=== PATIENT | female | born 1960 | race American Indian/Alaskan Native ===

== ENCOUNTER 2018-12-28 00:48 | Emergency (ER) | payer MEDICARE ==
[2018-12-28 00:52] VITALS: BP 168/86
[2018-12-28] MEDS ORDERED: DECADRON IM ONE (01:41)
[2018-12-28] MEDS ORDERED: BENADRYL PO ONE (01:41)
[2018-12-28] MEDS ORDERED: PEPCID PO ONE (01:41)
--- NOTE | 2018-12-28 02:37 | Emergency Department Report ---
HPI - General Chief Complaint: Allergic Reaction Time Seen by Provider: 12/28/18 01:40 - HPI HPI: pt is a 58 y/o aaf who presents for allergic reaction to Tylenol #3 taken and home approxe 4 hrs , pt states she began to breakout in rash hives aft ingesting T3, there was no sob no dizziness no lightheadedness no cp rash red raise macrpapular, to trunk abd back and neck, ED Past Medical Hx - Past Medical History Previous Medical History?: Yes Hx Arthritis: Yes (osteo) Hx Psychiatric Treatment: Yes (anxiety) - Surgical History Past Surgical History?: Yes Additional Surgical History: right knee replacement - Social History Smoking Status: Never Smoker Substance Use Type: None - Medications Home Medications: Home Medications Medication Instructions Recorded Confirmed Last Taken Type Dexamethasone [Decadron] 4 mg PO BID #4 tablet 12/28/18 Unknown Rx EPINEPHrine [Epipen 2-Kade] 0.3 mg IJ PRN PRN #1 auto.injct 12/28/18 Unknown Rx Famotidine [Pepcid] 20 mg PO BID #14 tablet 12/28/18 Unknown Rx diphenhydrAMINE [Benadryl CAP] 25 mg PO Q6HR PRN #28 capsule 12/28/18 Unknown Rx ED Review of Systems ROS: Stated complaint: HIVES ON BACK AND PAIN Other details as noted in HPI Constitutional: denies: chills, fever Eyes: denies: eye pain, eye discharge, vision change ENT: congestion. denies: ear pain, throat pain, dental pain, hearing loss Respiratory: cough, SOB with exertion. denies: shortness of breath, wheezing Cardiovascular: denies: chest pain, palpitations Endocrine: no symptoms reported Gastrointestinal: denies: abdominal pain, nausea, vomiting, diarrhea Genitourinary: denies: urgency, dysuria, discharge Musculoskeletal: denies: back pain, joint swelling, arthralgia Skin: rash. denies: lesions Neurological: denies: headache, weakness, paresthesias Psychiatric: as per HPI Hematological/Lymphatic: denies: easy bleeding, easy bruising Physical Exam - Physical Exam Vital Signs: Vital Signs 12/28/18 00:49 Temperature 98.2 F Pulse Rate 87 Respiratory 18 Rate Blood Pressure 168/86 O2 Sat by Pulse 97 Oximetry General: pt appears well nontoxic, exam: rash raise, rough, urticaria, to trunk and arm no fever no weeping Physical Exam: pt with nad reps even non labored ED Course Vital Signs 12/28/18 00:49 Temperature 98.2 F Pulse Rate 87 Respiratory 18 Rate Blood Pressure 168/86 O2 Sat by Pulse 97 Oximetry - Reevaluation(s) Reevaluation #1: 12/28/18 02:38 benadry, decadron, pepcid pt advise symptoms improved. ED Medical Decision Making - Medical Decision Making this an allergic reaction to medication symptoms improved at this time., plan dc to home with rx for benadryl, pepcid, decadron, epipen pt given epipen teaching at this time per verbalized agreement and understanding of discharge plan. Critical care attestation.: If time is entered above; I have spent that time in minutes in the direct care of this critically ill patient, excluding procedure time. ED Disposition Clinical Impression: Allergic drug reaction Qualifiers: Encounter type: initial encounter Qualified Code(s): T78.40XA - Allergy, unspecified, initial encounter Disposition: DC-01 TO HOME OR SELFCARE Is pt being admited?: No Does the pt Need Aspirin: No Condition: Good Instructions: Allergies (ED), Antibiotic Medication Allergy (ED) Prescriptions: Dexamethasone [Decadron] 4 mg PO BID #4 tablet diphenhydrAMINE [Benadryl CAP] 25 mg PO Q6HR PRN #28 capsule PRN Reason: Allergic Reaction EPINEPHrine [Epipen 2-Kade] 0.3 mg IJ PRN PRN #1 auto.injct PRN Reason: Allergy Symptoms Famotidine [Pepcid] 20 mg PO BID #14 tablet Referrals: JENNIFER DOYLE [Other] - 3-5 Days Forms: Work/School Release Form(ED) Time of Disposition: 02:48
== END 2018-12-28 02:53 | disposition home or self-care (01) ==
LOC: ED 00:48
DX: R21 Rash and other nonspecific skin eruption (principal); T39.1X5A Adverse effect of 4-Aminophenol derivatives, initial encounter; M19.90 Unspecified osteoarthritis, unspecified site; Z96.651 Presence of right artificial knee joint; Z88.0 Allergy status to penicillin; Y92.099 Unspecified place in other non-institutional residence as the place of occurrence of the external cause
CPT/HCPCS: 96372; 99282; J1100

== ENCOUNTER 2019-05-07 15:52 | Emergency (ER) | payer MEDICARE ==
[2019-05-07 15:59] VITALS: BP 152/90
[2019-05-07] MEDS ORDERED: NORCO 5/325 PO ONE (17:28)
--- NOTE | 2019-05-07 17:33 | Vascular Lab Report ---
DUPLEX VENOUS DOPPLER LEFT LOWER EXTREMITY INDICATION: edema TECHNIQUE: Duplex doppler imaging was performed through the veins of the left lower extremity using v enous compression and other maneuvers. COMPARISON: None available. FINDINGS: Common Femoral vein: Negative. Superficial Femoral vein: Negative. Popliteal vein: Negative. Calf veins: Negative. Additional findings: Soft tissue edema is noted distally. Thin elongated area of fluid in the poplite al fossa might be a popliteal cyst. IMPRESSION: No evidence of deep venous thrombosis. Signer Name: Erwin Singh MD Signed: 05/07/2019 5:29 PM Workstation Name: [id number]
--- NOTE | 2019-05-07 18:01 | Emergency Department Report ---
ED Lower Extremity HPI - General Chief Complaint: Extremity Problem,Nontraumatic Stated Complaint: LT LEG PAIN Time Seen by Provider: 05/07/19 17:26 Source: patient Mode of arrival: Ambulatory Limitations: No Limitations - History of Present Illness Initial Comments: Pt is a 59 y/o aaf with hx left knee ORIF, and htn who presents for left Lower leg pain x 2 , right medial tibfib pain with dorsoflexion, no calf tenderness mild LE swelling pt remains ambulatory. MD Complaint: other (LLE Pain ) Onset/Timin -: week(s) Injury: Leg: Left Place: home Severity: moderate Severity scale (0 -10): 4 Improves With: rest Worsens With: weight bearing, movement, palpation Context: other (post op ORIF left knee ) Associated Symptoms: swelling, ambulatory. denies: numbness, tingling - Related Data Previous Rx's Medication Instructions Recorded Last Taken Type EPINEPHrine [Epipen 2-Kade] 0.3 mg IJ PRN PRN #1 auto.injct 12/28/18 Unknown Rx Famotidine [Pepcid] 20 mg PO BID #14 tablet 12/28/18 Unknown Rx dexAMETHasone [Decadron] 4 mg PO BID #4 tablet 12/28/18 Unknown Rx diphenhydrAMINE [Benadryl CAP] 25 mg PO Q6HR PRN #28 capsule 12/28/18 Unknown Rx Capsaicin 0.075% [Zostrix Hp 1 applicatio TP TID PRN #1 tube 05/07/19 Unknown Rx 0.075%] traMADol [Ultram] 50 mg PO Q6HR PRN #12 tablet 05/07/19 Unknown Rx Allergies Allergy/AdvReac Type Severity Reaction Status Date / Time Penicillins Allergy Rash Verified 12/28/18 00:53 ED Review of Systems ROS: Stated complaint: LT LEG PAIN Other details as noted in HPI Constitutional: denies: chills, fever Eyes: denies: eye pain, eye discharge, vision change ENT: denies: ear pain, throat pain Respiratory: denies: cough, shortness of breath, wheezing Cardiovascular: denies: chest pain, palpitations Endocrine: no symptoms reported Gastrointestinal: denies: abdominal pain, nausea, diarrhea Genitourinary: denies: urgency, dysuria, discharge Musculoskeletal: arthralgia, myalgia. denies: back pain Skin: denies: rash, lesions Neurological: denies: headache, weakness, paresthesias Psychiatric: as per HPI Hematological/Lymphatic: denies: easy bleeding, easy bruising ED Past Medical Hx - Past Medical History Previous Medical History?: Yes Hx Arthritis: Yes (osteo) Hx Psychiatric Treatment: Yes (anxiety) - Surgical History Past Surgical History?: Yes Additional Surgical History: right knee replacement - Social History Smoking Status: Never Smoker - Medications Home Medications: Home Medications Medication Instructions Recorded Confirmed Last Taken Type EPINEPHrine [Epipen 2-Kade] 0.3 mg IJ PRN PRN #1 auto.injct 12/28/18 Unknown Rx Famotidine [Pepcid] 20 mg PO BID #14 tablet 12/28/18 Unknown Rx dexAMETHasone [Decadron] 4 mg PO BID #4 tablet 12/28/18 Unknown Rx diphenhydrAMINE [Benadryl CAP] 25 mg PO Q6HR PRN #28 capsule 12/28/18 Unknown Rx Capsaicin 0.075% [Zostrix Hp 1 applicatio TP TID PRN #1 tube 05/07/19 Unknown Rx 0.075%] traMADol [Ultram] 50 mg PO Q6HR PRN #12 tablet 05/07/19 Unknown Rx ED Physical Exam - General Limitations: No Limitations General appearance: alert, in no apparent distress - Head Head exam: Present: atraumatic, normocephalic - Eye Eye exam: Present: normal appearance, PERRL, EOMI Pupils: Present: normal accommodation - ENT ENT exam: Present: mucous membranes moist - Neck Neck exam: Present: normal inspection - Respiratory Respiratory exam: Present: normal lung sounds bilaterally. Absent: respiratory distress - Cardiovascular Cardiovascular Exam: Present: regular rate, normal rhythm. Absent: systolic murmur, diastolic murmur, rubs, gallop - GI/Abdominal GI/Abdominal exam: Present: soft, normal bowel sounds. Absent: distended, tenderness, bruit, hernia - Rectal Rectal exam: Present: deferred - Extremities Exam Extremities exam: Present: normal inspection, full ROM, tenderness (left lateral tib fib ), normal capillary refill. Absent: pedal edema, joint swelling, calf tenderness - Expanded Lower Extremity Exam Left Lower Leg exam: Present: full ROM, tenderness, swelling. Absent: abrasion, laceration, ecchymosis, deformity, crepidus, dislocation, erythema, palpable cord, Natanael's sign Ankle exam: Present: normal inspection, full ROM, swelling. Absent: tenderness, abrasion, laceration, ecchymosis, deformity, crepidus, dislocation, erythema, anterior draw sign Foot/Toe exam: Present: full ROM. Absent: tenderness, swelling, abrasion, laceration, ecchymosis, deformity, crepidus, dislocation, erythema, amputation, puncture wound, foreign body, calcaneal tenderness, tenderness at base of 5th metatarsal, nail avulsion, subungual hematoma Neuro vascular tendon exam: Absent: pulse deficit, motor deficit, sensory deficit, tendon deficit Gait: Positive: observed and normal - Back Exam Back exam: Present: normal inspection, full ROM. Absent: tenderness, CVA tenderness (R), CVA tenderness (L), muscle spasm, paraspinal tenderness, rash noted - Neurological Exam Neurological exam: Present: alert, oriented X3, CN II-XII intact, normal gait, reflexes normal. Absent: motor sensory deficit - Psychiatric Psychiatric exam: Present: normal affect, normal mood - Skin Skin exam: Present: warm, dry, intact, normal color. Absent: rash ED Course Vital Signs 05/07/19 15:57 Temperature 98.3 F Pulse Rate 80 Respiratory 18 Rate Blood Pressure 152/90 O2 Sat by Pulse 98 Oximetry ED Lower Extremity MDM - Radiology Data Radiology results: report reviewed, image reviewed Ordering Physician: ANGELIKA ARGUETA Date of Service: 05/07/19 Procedure(s): VL venous duplex LE LT Accession Number(s): [id number] cc: ANGELIKA ARGUETA DUPLEX VENOUS DOPPLER LEFT LOWER EXTREMITY INDICATION: edema TECHNIQUE: Duplex doppler imaging was performed through the veins of the left lower extremity using venous compression and other maneuvers. COMPARISON: None available. FINDINGS: Common Femoral vein: Negative. Superficial Femoral vein: Negative. Popliteal vein: Negative. Calf veins: Negative. Additional findings: Soft tissue edema is noted distally. Thin elongated area of fluid in the popliteal fossa might be a popliteal cyst. IMPRESSION: No evidence of deep venous thrombosis. Signer Name: Erwin Singh MD Signed: 05/07/2019 5:29 PM Workstation Name: [id number] Transcribed By: Dictated By: Erwin Singh MD Electronically Authenticated By: Erwin Singh MD Signed Date/Time: 05/07/19 6251 - Medical Decision Making US LE neg for DVT plan: ultram, capsacin oint, follow up with pcp in 2-3 days return to ed if symptoms worsen, pt and family members verbalized agreement and understanding of discharge plan. Critical care attestation.: If time is entered above; I have spent that time in minutes in the direct care of this critically ill patient, excluding procedure time. ED Disposition Clinical Impression: Musculoskeletal pain of left lower extremity Disposition: DC- TO HOME OR SELFCARE Is pt being admited?: No Does the pt Need Aspirin: No Condition: Stable Instructions: Musculoskeletal Pain (ED), Arthralgia (ED) Prescriptions: traMADol [Ultram] 50 mg PO Q6HR PRN #12 tablet PRN Reason: Pain Capsaicin 0.075% [Zostrix Hp 0.075%] 1 applicatio TP TID PRN #1 tube PRN Reason: Pain , Severe (7-10) Referrals: ABHISHEK SINGH MD [Staff Physician] - 3-5 Days Forms: Work/School Release Form(ED) Time of Disposition: 18:12
== END 2019-05-07 18:51 | disposition home or self-care (01) ==
LOC: ED 15:52
DX: M79.605 Pain in left leg (principal); M19.90 Unspecified osteoarthritis, unspecified site; F41.9 Anxiety disorder, unspecified; Z98.890 Other specified postprocedural states; Z96.651 Presence of right artificial knee joint; Z79.899 Other long term (current) drug therapy; Z88.0 Allergy status to penicillin
CPT/HCPCS: 99283

== ENCOUNTER 2021-02-11 00:54 | Emergency (ER) | payer MEDICARE ==
--- NOTE | 2021-02-11 04:35 | Emergency Department Report ---
ED Eye Problem HPI - General Chief complaint: Eye Problems Stated complaint: EYE PAIN/DISCHARGE Source: patient Mode of arrival: Ambulatory Limitations: No Limitations - History of Present Illness Initial comments: Patient is a 60-year-old -[place] female with a history of morbid obesity, hypertension, chronic osteoarthritis and anxiety presents to the ED with complaint of acute onset persistent bilateral nontraumatic eye pain with thick purulent discharge and swollen eyelids for the last 1 week. Patient states that she has been using [id number] eyedrops with no relief. Patient states that in the last 2 days she has not been able to open her eyes because of matting significant due to thick purulent discharge. Patient states that no one else at home is had similar symptoms. Patient denies change in vision, headache, fever, chills, cough, nasal and sinus congestion, abdominal pain, sore throat, dizziness, syncope, chest pain or shortness of breath, sore throat, traumatic injury or neck pain. MD chief complaint: eye pain (Bilateral), eye redness (Bilateral), other (Severe bilateral conjunctival purulent discharge) -: Sudden, week(s) (1) Onset Description: sudden Location: both eyes Place: home If Injury: none Eye Symptoms: burning, redness, pain, discharge Severity: severe Severity scale (0 -10): 7 If Pain, Quality: sharp, burning, aching Consistency: constant Context: recent uri Associated Symptoms: none. denies: headache, neck pain, nausea/vomiting, cough, rhinorrhea, fever, shortness of breath Treatments Prior to Arrival: OTC eye drops - Related Data Patient Tetanus UTD: Yes Previous Rx's Medication Instructions Recorded Last Taken Type EPINEPHrine [Epipen 2-Kade] 0.3 mg IJ PRN PRN #1 auto.injct 12/28/18 Unknown Rx Famotidine [Pepcid] 20 mg PO BID #14 tablet 12/28/18 Unknown Rx dexAMETHasone [Decadron] 4 mg PO BID #4 tablet 12/28/18 Unknown Rx diphenhydrAMINE [Benadryl CAP] 25 mg PO Q6HR PRN #28 capsule 12/28/18 Unknown Rx Capsaicin 0.075% [Zostrix Hp 1 applicatio TP TID PRN #1 tube 05/07/19 Unknown Rx 0.075%] traMADoL [Ultram] 50 mg PO Q6HR PRN #12 tablet 05/07/19 Unknown Rx Gentamicin 0.3% Ophth Soln 1 drops OP Q4H #1 bottle 02/11/21 Unknown Rx Ibuprofen [Motrin] 600 mg PO Q8H PRN #30 tablet 02/11/21 Unknown Rx Sulfamethoxazole/Trimethoprim 1 each PO Q12H #20 tablet 02/11/21 Unknown Rx [Bactrim DS TAB] Allergies Allergy/AdvReac Type Severity Reaction Status Date / Time Penicillins Allergy Rash Verified 12/28/18 00:53 ED Review of Systems ROS: Stated complaint: EYE PAIN/DISCHARGE Other details as noted in HPI Constitutional: denies: chills, fever Eyes: eye pain (Bilateral), eye discharge (Bilateral), other (Bilateral swollen eyelids with pain). denies: vision change ENT: denies: ear pain, throat pain Respiratory: denies: cough, shortness of breath, wheezing Cardiovascular: denies: chest pain, palpitations Endocrine: no symptoms reported Gastrointestinal: denies: abdominal pain, nausea, diarrhea Genitourinary: denies: urgency, dysuria, discharge Musculoskeletal: denies: back pain, joint swelling, arthralgia Skin: denies: rash, lesions Neurological: denies: headache, weakness, paresthesias Psychiatric: denies: anxiety, depression Hematological/Lymphatic: denies: easy bleeding, easy bruising ED Past Medical Hx - Past Medical History Hx Hypertension: Yes Hx Arthritis: Yes (osteo) Hx Psychiatric Treatment: Yes (anxiety) - Surgical History Additional Surgical History: right knee replacement - Social History Smoking Status: Never Smoker - Medications Home Medications: Home Medications Medication Instructions Recorded Confirmed Last Taken Type EPINEPHrine [Epipen 2-Kade] 0.3 mg IJ PRN PRN #1 auto.injct 12/28/18 Unknown Rx Famotidine [Pepcid] 20 mg PO BID #14 tablet 12/28/18 Unknown Rx dexAMETHasone [Decadron] 4 mg PO BID #4 tablet 12/28/18 Unknown Rx diphenhydrAMINE [Benadryl CAP] 25 mg PO Q6HR PRN #28 capsule 12/28/18 Unknown Rx Capsaicin 0.075% [Zostrix Hp 1 applicatio TP TID PRN #1 tube 05/07/19 Unknown Rx 0.075%] traMADoL [Ultram] 50 mg PO Q6HR PRN #12 tablet 05/07/19 Unknown Rx Gentamicin 0.3% Ophth Soln 1 drops OP Q4H #1 bottle 02/11/21 Unknown Rx Ibuprofen [Motrin] 600 mg PO Q8H PRN #30 tablet 02/11/21 Unknown Rx Sulfamethoxazole/Trimethoprim 1 each PO Q12H #20 tablet 02/11/21 Unknown Rx [Bactrim DS TAB] ED Physical Exam - General Limitations: No Limitations General appearance: alert, in no apparent distress - Head Head exam: Present: atraumatic, normocephalic, normal inspection - Eye Eye exam: Present: PERRL, EOMI, other (Swollen bilateral eyelids; bilateral conjunctival erythema with pink purulent discharge and matting) Pupils: Present: normal accommodation - ENT ENT exam: Present: normal exam, normal orophraynx, mucous membranes moist, TM's normal bilaterally, normal external ear exam - Neck Neck exam: Present: normal inspection, full ROM - Respiratory Respiratory exam: Present: normal lung sounds bilaterally. Absent: respiratory distress, wheezes, rales, rhonchi, chest wall tenderness, accessory muscle use, decreased breath sounds, prolonged expiratory - Cardiovascular Cardiovascular Exam: Present: regular rate, normal rhythm, normal heart sounds. Absent: systolic murmur, diastolic murmur, rubs, gallop - GI/Abdominal GI/Abdominal exam: Present: soft, normal bowel sounds. Absent: tenderness, guarding, rebound, hyperactive bowel sounds, hypoactive bowel sounds, organomegaly - Extremities Exam Extremities exam: Present: normal inspection, full ROM, normal capillary refill - Back Exam Back exam: Present: normal inspection, full ROM. Absent: tenderness, CVA tenderness (R), CVA tenderness (L), muscle spasm, paraspinal tenderness, vertebral tenderness - Neurological Exam Neurological exam: Present: alert, oriented X3, CN II-XII intact, normal gait, reflexes normal - Psychiatric Psychiatric exam: Present: normal affect, normal mood - Skin Skin exam: Present: warm, dry, intact, normal color. Absent: rash ED Course Vital Signs 02/11/21 01:20 Temperature 98.2 F Pulse Rate 92 H Respiratory 18 Rate Blood Pressure 138/96 O2 Sat by Pulse 99 Oximetry ED Medical Decision Making - Medical Decision Making This is a 60-year-old -[place] female with a history of morbid obesity, hypertension, chronic osteoarthritis and anxiety presents to the ED with complaint of acute onset persistent bilateral nontraumatic eye pain with thick purulent discharge and swollen eyelids for the last 1 week. Patient states that she has been using [id number] eyedrops with no relief. Patient states that in the last 2 days she has not been able to open her eyes because of matting significant due to thick purulent discharge. Patient states that no one else at home is had similar symptoms. In the ED, patient is alert and oriented x3 and is not in any distress. Patient the history and physical exam findings, the patient appears to have severe acute bacterial conjunctivitis and blepharitis. Patient was discharged home on medications including antibiotics eyedrops and pain medications and advised to follow-up with her primary care physician in 3 to 5 days for reevaluation. Patient was advised return to the ED immediately if symptoms get worse. - Differential Diagnosis Bacterial conjunctivitis; blepharitis; Critical care attestation.: If time is entered above; I have spent that time in minutes in the direct care of this critically ill patient, excluding procedure time. ED Disposition Clinical Impression: Acute bacterial conjunctivitis of both eyes Blepharitis of both eyes Qualifiers: Blepharitis type: unspecified type Eyelid: both upper and lower Qualified Code(s): H01.00A - Unspecified blepharitis right eye, upper and lower eyelids; H01.00B - Unspecified blepharitis left eye, upper and lower eyelids Disposition: TO HOME OR SELFCARE Is pt being admited?: No Does the pt Need Aspirin: No Condition: Stable Instructions: Blepharitis, [id number], Bacterial Conjunctivitis, Adult, [id number] Additional Instructions: Take medication by mouth as advised, apply the antibiotic eyedrops to the eyes as advised. Return to the ED immediately if symptoms get worse. Otherwise follow-up with your primary care physician in 5 to 7 days for reevaluation or return to the ED immediately if symptoms get worse. Prescriptions: Sulfamethoxazole/Trimethoprim [Bactrim DS TAB] 1 each PO Q12H #20 tablet Gentamicin 0.3% Ophth Soln 1 drops OP Q4H #1 bottle Ibuprofen [Motrin] 600 mg PO Q8H PRN #30 tablet PRN Reason: Pain Referrals: [facility] [Provider Group] - 3-5 Days Time of Disposition: 04:32 Print Language: THAI
[2021-02-11 05:05] VITALS: BP 136/94
== END 2021-02-11 05:06 | disposition home or self-care (01) ==
LOC: ED 00:54
DX: H01.00A Unspecified blepharitis right eye, upper and lower eyelids (principal); H01.00B Unspecified blepharitis left eye, upper and lower eyelids; H10.33 Unspecified acute conjunctivitis, bilateral; B96.89 Other specified bacterial agents as the cause of diseases classified elsewhere; I10 Essential (primary) hypertension; E66.01 Morbid (severe) obesity due to excess calories; F41.9 Anxiety disorder, unspecified; M19.90 Unspecified osteoarthritis, unspecified site; Z79.899 Other long term (current) drug therapy; Z88.0 Allergy status to penicillin; Z68.41 Body mass index [BMI] 40.0-44.9, adult; Z98.890 Other specified postprocedural states
CPT/HCPCS: 99282